=== PATIENT | female | born 1960 | race Caucasian/White ===

== ENCOUNTER 2024-02-27 15:08 | Outpatient (CLI) | payer OTHER, SELFPAY ==
--- NOTE | 2024-02-27 15:20 | XR_ITS ---
WS: [id number] XR chest 2V* [id number] REASON FOR EXAM: CHEST PAIN FINDINGS: The heart and mediastinum are within normal limits. Calcified granulomatous disease centrally in both lungs. No other significant pulmonary parenchymal o r pleural abnormality. No significant abnormality of the bony thorax. XR/XR chest 2V* [id number] IMPRESSION: No acute chest abnormality.
== END 2024-02-27 15:09 | disposition home or self-care (01) ==
LOC: RAD 15:18
PROVIDERS: PCP Nurse Practitioner Adult Health; Visit Provider Nurse Practitioner Adult Health
DX: Z22.7 Latent tuberculosis (principal); R07.9 Chest pain, unspecified; D71 Functional disorders of polymorphonuclear neutrophils
CPT/HCPCS: 71046